=== PATIENT | female | born 1965 | race African-American/Black ===

== ENCOUNTER 2018-05-12 16:16 | Inpatient (IN) | payer OTHER ==
[~2018-05-12] VITALS: Ht 157.5 cm; Wt 68.0 kg
[2018-05-12] MEDS ORDERED: COZAAR50 MG PO (16:18)
[2018-05-12] MEDS ORDERED: LEVO-T50 MCG PO (16:19)
== END 2018-05-22 16:54 | DRG 743 ==
LOC: O/R 05-19 05:45 → OB/GYN 05-19 05:45 → RECOVERY 05-19 09:30 → OB/GYN 05-20 01:08
PROVIDERS: Obstetrics & Gynecology
PROC: 0UT70ZZ Resection of Bilateral Fallopian Tubes, Open Approach (ICD-10-PCS; 2018-05-19)
PROC: 0UT90ZZ Resection of Uterus, Open Approach (ICD-10-PCS; principal; 2018-05-19 09:30)
DX: D25.1 Intramural leiomyoma of uterus (principal); D25.0 Submucous leiomyoma of uterus; D25.2 Subserosal leiomyoma of uterus; N72 Inflammatory disease of cervix uteri; N80.0 Endometriosis of uterus